=== PATIENT | female | born 1970 | race Caucasian/White ===

== ENCOUNTER → 2021-03-23 10:48 | Outpatient (CLI) | payer BC, SELFPAY ==
[2021-03-23 18:21] LABS: SARS-CoV-2 RNA PCR Positive
== END ==
PROVIDERS: PCP Internal Medicine; Visit Provider Internal Medicine
DX: U07.1 COVID-19 (principal)
CPT/HCPCS: C9803; U0003; U0005

== ENCOUNTER 2023-04-05 01:48 | Day surgery (SDC) | payer OTHER, SELFPAY ==
[2023-03-26 12:58] VITALS: BMI 34.2
--- NOTE | 2023-04-04 15:53 | P.HP_ITS ---
History of Present Illness History of Present Illness Consent: Risks, benefits, and alternatives have been discussed and questions answered. Patient agrees to proceed with procedure. 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 She is known to have achalasia. Several years ago she had injections of botulinum toxin with temporarysuccess. I subsequently had referred her to [facility] for further investigation. She ultimately had surgery which has helped considerably. She does however have food hesitate when she is swallowing from time to time and may regurgitate thick saliva giving the suggestion that is not passing away. She does also at other times feel that something is refluxing upwards. She is due also for colon cancer screening. Review of Systems Review of Systems: All systems reviewed & are unremarkable except as noted in HPI and below PMFSH Social History Social History Smoking status: Never smoker Alcohol intake: current Substance use: never Substance use type: does not use Living arrangements: with family Spiritual care concerns: No Meds Home Medications and Allergies Home Medications Medication Instructions Recorded Confirmed Type lisinopril 10 1 tablet PO DAILY 03/26/23 03/26/23 History mg-hydrochlorothiazide 12.5 mg tablet Allergies Allergy/AdvReac Type Severity Reaction Status Date / Time erythromycin base Allergy Nausea Verified 04/05/23 11:01 Exam Const: General: alert Orientation/consciousness: patient oriented x3 Resp: Auscultation: clear to auscultation bilaterally Cardio: Rhythm: regular rhythm GI: GI Palp: Yes Soft to palpation and No Tenderness to palpation present (GI) Neuro: General: patient oriented x3 Assessment and Plan Assessment and plan (1) Dysphagia: Code(s): R13.10 - Dysphagia, unspecified Status: Acute Assessment and Plan: EGD with possible biopsy or dilatation or cautery, Possible injection of Botox (2) Colon cancer screening: Code(s): Z12.11 - Encounter for screening for malignant neoplasm of colon Status: Acute Assessment and Plan: Colonoscopy with possible biopsy or polypectomy or cautery or injection of substances.
[2023-04-05 11:03] VITALS: BP 133/95; PULSE 85; RESP 20; TEMP 36.2; O2SAT 100; BMI 33.7
[2023-04-05] MEDS: LACTATED RINGERS 1,000 ML 150 ML IV CONT (11:06)
--- NOTE | 2023-04-05 11:50 | P.PNAN_ITS ---
Anes - Initial Pre Proc Eval Procedure: Operation Date: 04/05/23 12:15 Proposed Procedures p Esophagogastroduodenoscopy & Screening Colonoscopy - Jaspreet Parsons MD Date/Time: 04/05/23 11:50 Surgeon: Jaspreet Parsons MD Pre Op Diagnosis: achalasia esophagus, neoplasm screening Patient Data Age: 52 Gender: F Height: 1.57 m Weight: 83.7 kg Last Vital Signs Temp 97.1 F L 04/05/23 11:03 Pulse 85 04/05/23 11:03 Resp 20 04/05/23 11:03 BP 133/95 H 04/05/23 11:03 Pulse Ox 100 04/05/23 11:03 O2 Del Method Room Air 04/05/23 11:03 Allergies Allergy/AdvReac Type Severity Reaction Status Date / Time erythromycin base Allergy Nausea Verified 04/05/23 11:01 Home Medications Medication Instructions Recorded Confirmed Type lisinopril 10 1 tablet PO DAILY 03/26/23 03/26/23 History mg-hydrochlorothiazide 12.5 mg tablet Patient hx anesthesia problems: none Family hx anesthesia problems: none Results Review: All pre-operative results and documents have been reviewed as part of the pre- operative evaluation. [facility] Social History Social History Smoking status: Never smoker Alcohol intake: current Substance use: never Substance use type: does not use Living arrangements: with family Spiritual care concerns: No Anes - Eval Final PreProcedure Day of Procedure 04/05/23 11:50 Patient weight: obese Heart: regular rate and rhythm Lungs: clear to auscultation Airway: Mallampati scale class II Neurological: alert and oriented Last oral intake: >/= 8 hours ASA classification: II Emergent: no Anesthetic plan: proceed Anesthesia type and monitoring: general GIVS and standard monitoring Results Review: All pre-operative results and documents have been reviewed as part of the pre- operative evaluation. Informed Consent: The patient's anesthetic plan and its attendant risks and benefits were discussed with the patient/family/POA. Questions were solicited and answers provided to the satisfaction of the patient/family/POA.
--- NOTE | 2023-04-05 12:02 | SUR.OPER ---
EGD completed at 1158, colonoscopy started at 1205
[2023-04-05 12:21] VITALS: BP 124/69; PULSE 74; RESP 23; O2SAT 98
[2023-04-05 12:31] VITALS: BP 119/79; PULSE 69; RESP 22; O2SAT 98
[2023-04-05 12:41] VITALS: BP 134/80; PULSE 68; RESP 20; O2SAT 99
== END 2023-04-05 13:13 | disposition home or self-care (01) ==
PROVIDERS: PCP Internal Medicine; Visit Provider Internal Medicine Gastroenterology
PROC: 0DJ08ZZ Inspection of Upper Intestinal Tract, Via Natural or Artificial Opening Endoscopic (ICD-10-PCS; CPT 43235; principal; 2023-04-05 12:15)
DX: Z12.11 Encounter for screening for malignant neoplasm of colon (principal); C20 Malignant neoplasm of rectum; K21.9 Gastro-esophageal reflux disease without esophagitis; K22.89 Other specified disease of esophagus; Z98.84 Bariatric surgery status; E66.9 Obesity, unspecified; Z68.33 Body mass index [BMI] 33.0-33.9, adult
CPT/HCPCS: 45380; 43235; 87081; 88305; J2704; J7120